=== PATIENT | male | born 1970 | race Caucasian/White ===

== ENCOUNTER → 2017-03-09 | Outpatient (CLI) | payer BC ==
--- NOTE | ~2017-03-09 | EKG ---
PATIENT: ANDRAE ALFARO UNIT #: [id number] Ventricular Rate: 76 BPM Atrial Rate: 83 BPM P-R Interval: 130 ms QRS Duration: 98 ms Q-T Interval: 366 ms QTC Calculation(Bezet): 411 ms P [place]: 34 degrees Calculated R [place]: 48 degrees Calculated T [place]: 45 degrees Diagnosis Line: Normal sinus rhythm with sinus arrhythmia Diagnosis Line: Normal ECG Diagnosis Line: No previous ECGs available Diagnosis Line: Confirmed by ONIEL ARCE MD ([id number]) on Diagnosis Line: 03/10/2017 4:50:56 PM INTERPRETING MD: CONCHIS
[2017-03-09 09:27] LABS: HEMATOCRIT 45.7 % (38.0-50.0); HEMOGLOBIN 15.4 gm/dL (13.0-16.0); MEAN CELL VOLUME 87.8 FL (83-96); MEAN CORPUSCULAR HEMOGLOBIN 29.6 PG (28-34); MEAN CORPUSCULAR HGB CONC 33.8 g/dL (30-36); MEAN PLATELET VOLUME 9.4 FL (6.5-11.5); RED BLOOD COUNT 5.21 X10e (3.90-5.60); RED CELL DISTRIBUTION WIDTH 13.1 % (11.0-15.5); WHITE BLOOD COUNT 8.8 X10e3 (4.0-10.5)
[2017-03-09 10:06] LABS: BUN/CREATININE RATIO 15.71; CALCIUM SERUM 9.3 mg/dL (8.4-10.2); CREATININE SERUM 0.7 mg/dL (0.6-1.4); GLOM FILT RATE Estimated 114.8 mL/min (>60); POTASSIUM 3.9 mmol/L (3.5-5.1)
== END | disposition home or self-care (01) ==
LOC: CLAB 08:46
PROVIDERS: Specialist
DX: Z01.818 Encounter for other preprocedural examination (principal); J32.9 Chronic sinusitis, unspecified; I10 Essential (primary) hypertension
CPT/HCPCS: 36415; 80048; 85027; 93005